=== PATIENT | female | born 1975 | race Caucasian/White ===

== ENCOUNTER 2017-01-23 10:57 | Emergency (ER) | payer OTHER ==
[~2017-01-23 10:57] MED LIST: CELEBREX200 MG PO; HYZAAR 50-12.51 TAB PO; LOPRESSOR DPS12.5 MG PO; METOPROLOL TART25 MG PO; OXY IR DPS5 MG PO; SENOKOT S1 TAB PO; TYLENOL DPS325 MG PO; ULTRAM DPS50 MG PO; XARELTO10 MG PO
--- NOTE | 2017-02-10 15:51 | ER ---
ADMIT: 01/23/2017 RM/LOC: ER [facility] MR#: [id number] [address] [id number] DENISESTEFANO HUERTA [address] [place], [place] [id number] Emergency Room Report SEX: F AGE: 41 : 1975 DATE: 01/23/2017 The patient is a 41-year-old female with 10 seconds of shortness of breath and lightheadedness. She has had a history of arrhythmia for she had a Holter monitor on where they were not able to determine or did not see any arrhythmia at that time. See T-sheet for remainder of history and physical. On pertinent labs, her potassium is 3.5, she is given potassium supplement in the ER. Her EKG was completely normal. She is placed on a Holter monitor. Instructed to follow up this week with her primary doctor, diagnosis being possible arrhythmia. Jose Angel Balderrama MD/ mario JOB #: [id number] CC: Jose Angel Balderrama MD, Attending Physician Evan Kraft MD, Family Physician
== END 2017-01-23 13:15 | disposition home or self-care (01) ==
LOC: ER 10:57
DX: R06.02 Shortness of breath (principal); R42 Dizziness and giddiness; R00.2 Palpitations; I10 Essential (primary) hypertension; F17.210 Nicotine dependence, cigarettes, uncomplicated; Z79.899 Other long term (current) drug therapy